=== PATIENT | male | born 1980 | race Caucasian/White ===

== ENCOUNTER 2017-05-18 12:36 | Inpatient (IN) | payer BC ==
[~2017-05-18] VITALS: Ht 177.8 cm; Wt 99.0 kg
[2017-05-18 13:14] LABS: BASOPHIL % 0.4 % (0-2); PLATELET COUNT 211 x10^3mcL (130-400); RED CELL DISTRIBUTION WIDTH 13.3 % (11.5-14.5)
[2017-05-18 14:16] LABS: CALCIUM 9.1 mg/dL (8.5-10.1); CARBON DIOXIDE 28.9 mmol/L (21-32); CHLORIDE SERUM 104 mmol/L (98-107); GFR1 > 60 mL/min; GLUCOSE SERUM 95 mg/dL (74-106); POTASSIUM SERUM 4.5 mmol/L (3.5-5.1); SODIUM SERUM 140 mmol/L (136-145)
[2017-05-18 14:21] LABS: ALBUMIN 4.1 g/dL (3.4-5.0); ALKALINE PHOSPHATASE 64 U/L (46-116); ALT/SGPT 40 U/L (16-63); AST/SGOT 23 U/L (15-37); BILIRUBIN TOTAL 0.6 mg/dL (0.20-1.00); LIPASE 130 IU/L (73-393); TOTAL PROTEIN, SERUM 7.5 g/dL (6.4-8.2)
[2017-05-18 15:22] VITALS: BP 121/68
[2017-05-18 16:42] LABS: T3 TOTAL 1.08 ng/mL
[2017-05-18 17:00] LABS: FREE T4 1.04 ng/dL (0.76-1.46); FREE THYROXINE INDEX 2.2 ug/dL (1.4-4.5)
[2017-05-18 17:10] LABS: MAGNESIUM 1.9 mg/dL (1.8-2.4); PHOSPHOROUS 2.8 mg/dL (2.5-4.9)
[2017-05-18 17:15] VITALS: BP 121/61
[2017-05-18 21:45] VITALS: BP 109/63
[2017-05-19 05:53] LABS: microscopic required? NO
[2017-05-19 05:56] LABS: PLATELET COUNT 206 x10^3mcL (130-400); RED CELL DISTRIBUTION WIDTH 13.2 % (11.5-14.5)
[2017-05-19 05:59] VITALS: BP 112/71
[2017-05-19 06:18] LABS: CALCIUM 8.8 mg/dL (8.5-10.1); CARBON DIOXIDE 25.2 mmol/L (21-32); CHLORIDE SERUM 111 mmol/L (98-107); CREATININE SERUM 0.9 mg/dL (0.7-1.3); GFR1 > 60 mL/min; GLUCOSE SERUM 127 mg/dL (74-106); POTASSIUM SERUM 4.4 mmol/L (3.5-5.1); SODIUM SERUM 146 mmol/L (136-145)
[2017-05-19 06:40] LABS: BASOPHIL % 0 % (0-2)
[2017-05-19 07:54] LABS: AMPHETAMINE QUAL UR NONE DETECTED (NEG <=1000)
[2017-05-19 09:46] LABS: UA SPECIFIC GRAVITY >=1.030 (1.005-1.035); urine erythrocyte NEGATIVE (NEGATIVE)
[2017-05-19 09:50] VITALS: BP 111/56
[2017-05-19 13:58] VITALS: BP 115/58
[2017-05-19] MEDS ORDERED: FLE10 PO (14:32)
[2017-05-19 15:19] VITALS: BP 115/58
== END 2017-05-19 16:50 | disposition home or self-care (01) | DRG 552 ==
LOC: ED 12:36 → DU 14:18
PROVIDERS: Specialist; ADMIT Family Medicine
DX: S33.5XXA Sprain of ligaments of lumbar spine, initial encounter (principal); G89.29 Other chronic pain; Z53.29 Procedure and treatment not carried out because of patient's decision for other reasons; M54.5 Low back pain; D72.829 Elevated white blood cell count, unspecified; X58.XXXA Exposure to other specified factors, initial encounter; Y93.89 Activity, other specified; Y92.018 Other place in single-family (private) house as the place of occurrence of the external cause; Z68.31 Body mass index [BMI] 31.0-31.9, adult
CPT/HCPCS: 83880; 84439; J1100; J1170; J1885; J2405; J2800; J2930; J7030; Q0092